=== PATIENT | male | born 1940 | race Caucasian/White ===

== ENCOUNTER 2021-05-16 17:46 | Inpatient (IN) | payer MEDICARE, OTHER, SELFPAY ==
[2021-05-16] VITALS (15 sets, daily range): BP systolic 78–186; BP diastolic 53–141; PULSE 58–127; RESP 12–20; TEMP 36.2–36.8; O2SAT 94–100; BMI 34.2; BMI 34.7
--- NOTE | 2021-05-16 18:03 | EKG12_ITS ---
Test Reason : DIZZY Blood Pressure : / mmHG Vent. Rate : 115 BPM Atrial Rate : 288 BPM P-R Int : 000 ms QRS Dur : 142 ms QT Int : 354 ms P-R-T Axes : 000 115 -17 degrees QTc Int : 489 ms Atrial flutter with variable A-V block Right bundle branch block Left posterior fascicular block Bifascicular block T wave abnormality, consider inferior ischemia Abnormal ECG Confirmed by LAKESHA REBOLLAR, STEFANIE ([id number]), subeditor KARLENE SAINI ([id number]) on 05/18/2021 11:00:43 AM Referred By: BRIGID Confirmed By:STEFANIE CROWDER MD
--- NOTE | 2021-05-16 18:05 | EX.ED.DYSGE1 ---
HPI History of Present Illness Chief Complaint: Dizziness Informant: patient Onset/Context/Timing Onset: Today Context: Gradual Onset Timing: Intermittent Current Severity: Gone Maximum Severity: Mild Narrative Narrative: 80-year-old male past medical history of enlarged prostate. No cardiac history. No history of stroke or mini stroke. No history of hypertension. Today the patient's had fluctuating blood pressure mainly around the 110. But at times has been high. Other times been low. He is also had a heart rate of around 1 20-1 30 at home. He has no history of cardiac disease or dysrhythmia. He said it felt lightheaded when he had the dizziness. He denied any numbness or weakness to his upper or lower extremities. No visual change or speech change. He has had no headache. No abdominal pain. No nausea, vomiting or diarrhea. No melena. No chest pain or hemoptysis. Has had no fever recently. States he has actually been feeling quite well. Prior similar symptoms: No Recent Illness/Hospitalization: No PFSH PFSH Allergy/AdvReac Type Severity Reaction Status Date / Time No Known Allergies Allergy Verified 05/16/21 17:52 Social History Smoking Status: Never smoker ROS ROS ED ROS Narrative Denies recent illness. Review of Systems ROS Unobtainable: Denies due to encephalopathy Constitutional Constitutional ED: Denies chills or fever(s) Eyes Eyes: Denies change in vision ENT ENT ED: Denies ear pain, rhinorrhea or sore throat Cardiovascular Cardiovascular: Reports racing heartbeat; Denies chest pain Respiratory/Chest Respiratory/Chest: Denies cough or dyspnea Gastrointestinal Gastrointestinal: Denies abdominal pain, diarrhea, nausea or vomiting Genitourinary Genitourinary ED: Denies dysuria or hematuria Musculoskeletal Musculoskeletal: Denies myalgias Integumentary Denies rash Neurologic Neurologic: Denies headache(s) Psychiatric Psychiatric: Denies depression Endocrine Endocrinology: Denies polyuria Allergic/Immunologic Allergic/Immunologic ED: Denies urticaria EXAM Physical Exam Narrative Exam Narrative: 80-year-old male no acute distress triage blood pressure is 181/141. That may be a an error. When I am in the room is 110/60. H EENT exam unremarkable. No facial droop. Tongue midline. Normal speech. Neck nontender. No JVD. No lymphadenopathy. Lungs clear to auscultation bilaterally. Heart tachycardic rate about 130 no murmur. Abdomen soft nontender normal bowel sounds no peritoneal signs. Patient moving all 4 extremities. Calves are nontender. He does have trace edema bilaterally. Neurologically is awake and alert with no focal motor deficits. 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 Dorsi plantarflexion intact. Fingertip to nose within normal limits. No facial droop and normal speech. Const Vital Signs: 05/16/21 17:49 05/16/21 18:12 Temperature 97.2 F L Temperature Source Temporal Pulse Rate 101 H 108 H Respiratory Rate 12 18 Respiratory Pattern Normal Blood Pressure 181/141 H 102/76 Blood Pressure Mean 154 84 Pulse Ox 94 99 Oxygen Delivery Method Room Air Room Air Positive well nourished and well developed; Negative for obese, cachectic, contractures or unkempt General Appearance ED: well developed and NAD; Negative for unkempt, cachectic, contractures, cyanotic, diaphoretic or pallor Nutritional Appearance: Negative for cachectic or obese HEENT Reports moist mucous membranes Negative for trauma or tenderness Eyes PERRL and EOMs intact bilaterally Neck no lymphadenopathy, supple and no JVD General: Negative for tenderness Chest Wall inspection of chest normal and palpation of chest normal Resp normal respiratory effort and clear to auscultation bilaterally Auscultation: Negative for rales, rhonchi or wheezes Cardio Rate: tachycardic GI normal to inspection, nondistended, normoactive bowel sounds, non-tender, non-distended and no masses Inspection: Negative for abdominal distention Auscultation: normoactive bowel sounds Palpation: soft; Negative for tender, guarding or rebound tenderness present Back/Spine no CVA tenderness Extremity normal to inspection Extremity Narrative: Trace edema bilaterally. General Extremety ED: Yes edema; Negative for tenderness General Extremity: edema Neuro oriented x3 Sensorium / Orientation: alert; Negative for orientation impaired, lethargic or stuporous Motor Exam: strength 5/5 throughout Psych mental status grossly normal Appearance: Negative for unkempt Mood & Affect: Negative for depressed or tearful Skin no rashes or lesions noted and no wounds General Skin Exam: Negative for jaundice or pallor MDM MDM MDM Narrative Medical decision making narrative: Patient with lightheadedness and tachycardia. His EKG appears to be atrial flutter with variable block. Patient undergo a cardiac evaluation. Repeat exam at 6:58 PM patient doing well. He is in a flutter rate about 130. Current blood pressure is 105/70. Will be started on a Cardizem drip. Have the hospitalist on page. I spoke to the patient and his son at bedside and are comfortable with him being admitted. Lab Data Attestation: I reviewed the patient's lab results. Lab results narrative: CBC shows a white count 8.6 hemoglobin 12.9. Normal platelet count. Electrolytes show an anion gap of 5 BUN 21 creatinine of 1. Troponin 24 TSH normal at 1.85. Labs: Laboratory Results - last 24 hr 05/16/21 05/16/21 18:10 18:10 WBC 8.6 RBC 4.76 Hgb 12.9 L Hct 41.5 MCV 87.2 MCH 27.1 MCHC 31.1 L RDW Std Deviation 47.8 H RDW Coeff of Alona 14.9 H Plt Count 222 MPV 9.5 Immature Gran % (Auto) 0.200 Neut % (Auto) 53.4 Lymph % (Auto) 29.5 [place] % (Auto) 12.0 H Eos % (Auto) 4.1 Baso % (Auto) 0.8 Absolute Neuts (auto) 4.6 Absolute Lymphs (auto) 2.53 Nucleated RBC % 0 Sodium 139 Potassium 3.8 Chloride 110 H Carbon Dioxide 24.0 Anion Gap 5 BUN 21 H Creatinine 1.08 Estim Creat Clear Calc 57.13 Est GFR (MDRD) Af Amer 84 Est GFR (MDRD) Non-Af 70 BUN/Creatinine Ratio 19.4 Glucose 112 H Calcium 8.8 Troponin I High Sens 24 TSH 1.85 Radiography Chest X-Ray - ED: 1 View, Read by ED Physician, Heart, Lungs, Mediastinum, Bony Structures, No Acute Disease and Chronic Changes Diagnostic Testing: Clinical Impression(s) from Imaging Studies Chest X-Ray 05/16/21 18:25 IMPRESSION: No acute cardiopulmonary process. Electronically Signed: Eric Farfan MD (Brooks) at 18:45 EST , Service support , Rhythm Strip Rhythm Strip: A-fib Rate: 115 Ectopy: None EKG Initial EKG: Attestation: I personally reviewed and interpreted this EKG as follows: Interpretation: No Acute Injury Pattern and Atrial Flutter Comments: Atrial flutter rate of 115 with a right bundle branch block and left posterior fascicular block. He has a history of bundle branch block. Ends of PR nor ischemia. Prior EKG tracings: not available for review Discharge Plan Dx/Rx/DC Orders Clinical Impression: New onset atrial flutter Disposition Disposition: Acute Care Hospital [facility]
[2021-05-16 18:21] LABS: Absolute Lymphocyte Count 2.53 X10^3/uL (0.83-4.51); Absolute Neutrophil Count 4.6 X10^3/uL (2.0-7.7); Basophil# 0.07 X10^3/uL; Basophil% 0.8 % (0-1); Eosinophil# 0.35 X10^3/uL; Eosinophils% 4.1 % (0-5); Hematocrit 41.5 % (40-54); Hemoglobin 12.9 g/dL (13.0-16.5); Lymphocyte # 2.53 X10^3/ul (0.83-4.51); Lymphocyte % 29.5 % (19-41); Mean Corp Hgb Conc 31.1 g/dL (32-36); Mean Corpuscular Hgb 27.1 pg (27.0-32.0); Mean Corpuscular Volume 87.2 fL (80-94); Mean Platelet Vol. 9.5 fl (6.2-12.0); Monocyte# 1.03 X10^3/uL; NRBC Flagged by Analyzer 0 % (0-5); Neutrophil # 4.58 X10^3/uL (2.7-7.7); Neutrophil % 53.4 % (47-70); Platelet Count 222 K/mm3 (150-450); RBC Distribution Width CV 14.9 % (11.6-14.6); RBC Distribution Width SD 47.8 fl (35.1-43.9); Red Blood Count 4.76 M/mm3 (4.6-6.2); White Blood Count 8.6 K/mm3 (4.4-11.0)
--- NOTE | 2021-05-16 18:25 | RAD_ITS ---
STUDY: X-RAY CHEST REASON FOR EXAM: Male, 80 years old. chest pain TECHNIQUE: AP COMPARISON: None. FINDINGS: EKG leads project over the chest. The lungs are clear and expanded. There is no demonstrated pleural abnormality. Normal size heart. Normal mediastinum and franklin. Normal visualized pulmonary arteries. There is atherosclerotic calcification of the aortic arch with tortuosity. Normal visualized thoracic spine. Normal visualized ribs, clavicles, and shoulders. Hiatal hernia. RAD/Chest 1 View (Portable) IMPRESSION: No acute cardiopulmonary process. Electronically Signed: Eric Farfan MD (Brooks) at 18:45 EST , Service support ,
[2021-05-16 18:48] LABS: Anion Gap 5 (5-15); BUN 21 mg/dL (7-18); BUN/Creat Ratio 19.4 RATIO (10-20); Calcium,Total 8.8 mg/dL (8.5-10.1); Chloride 110 mmol/L (98-107); Creatinine, Serum 1.08 mg/dL (0.70-1.30); EST Glomerular Filtration Rate 70 mL/min (>60); Est Glom Filt Rate - Afr Amer 84 mL/min (>60); Estimated Creatinine Clearance 57.13 ml/min; Glucose 112 mg/dL (74-106); Potassium 3.8 mmol/L (3.5-5.1); Sodium Level 139 mmol/L (136-145); Thyroid Stim Hormone (TSH) 1.85 uIU/mL (0.358-3.74); Troponin-I HS 24 pg/mL (3.0-78.0)
--- NOTE | 2021-05-16 19:14 | HP.PCM.HOS_ITS ---
HPI - General General Date of Admission: 05/16/21 Date of Service: 05/16/21 HPI Narrative DAVIS WALKER, is a 80 M with a significant history of BPH and who is hard of hearing presenting to the emergency department with a persistent lightheadedness that started on the same day of presentation. Following his lightheadedness he checked his blood pressure at home and it was erratic. He went to a nearby fire station where they his blood pressure was checked and an EKG was done. He was advised to come to the emergency department. At the emergency department it was found that patient was in a flutter with erratic rates. [facility] Medical History (Updated 05/16/21 @ 19:[address] Ovidio Park MD) BPH (benign prostatic hyperplasia) Home Medications cyanocobalamin (vitamin B-12) [Vitamin B-12] 2,000 mcg PO DAILY 05/16/21 [History Last Taken Unknown] doxazosin 4 mg PO QHS 05/16/21 [History Last Taken Unknown] finasteride 5 mg OTHER DAILY 05/16/21 [History Last Taken Unknown] pyridoxine (vitamin B6) [Vitamin B-6] 250 mg PO DAILY 05/16/21 [History Last Taken Unknown] vit A-vit C-vit [id number] [Eye Vitamin and Minerals] tab PO DAILY 05/16/21 [History Last Taken Unknown] Allergy/AdvReac Type Severity Reaction Status Date / Time No Known Allergies Allergy Verified 05/16/21 17:52 Family History Other Dementia Surgical History (Updated 05/16/21 @ 19:[address] Ovidio Park MD) History of hip surgery Social History Smoking Status: Never smoker ROS ROS Narrative Constitutional: Denies fever, chills, fatigue, anorexia and change in weight Eyes: Denies blurry vision, change in eye color, change in vision, discharge from eye(s), double vision, erythema, eye pain, loss of vision or other HEENT: Denies abnormal hearing, dysphagia, ear pain, epistaxis, headache(s), hearing loss, nasal congestion, nasal discharge, post nasal drip, sinus pressure, sore throat or other Cardiovascular: Denies chest pain or palpitations. Denies dyspnea on exertion, orthopnea and paroxysmal nocturnal dyspnea Respiratory/Chest: Denies cough, excessive phlegm production, shortness of breath with exertion and wheezing Gastrointestinal: Denies abdominal pain, coffee ground emesis, constipation, diarrhea, dyspepsia, hematemesis, hematochezia, loose stools, melena, nausea, vomiting or other Genitourinary: Denies burning urination, difficulty urinating, dysuria, hem aturia, nocturia, urinary frequency, urinary hesitancy, urinary incontinence, urinary urgency or other Musculoskeletal: Denies arthralgias, back pain, joint pain, joint stiffness, joint swelling, myalgias, neck pain or other Neurologic: Denies abnormal gait, abnormal speech, confusion, disequilibrium, , focal weakness, headache(s),seizure-like activity, seizures, syncope, tremor(s) or other. Reports numbness and tingling in feet (chronic) Psychiatric: Denies anxiety, depression, homicidal ideation, suicidal ideation or other Endocrinology: Denies change in body appearance, cold intolerance, excessive sweating, heat intolerance, polydipsia, polyuria or other Hematologic/Lymphatic: Denies anemia, easy bleeding, easy bruising, lymphadenopathy or other Integumentary: Denies rashes Allergic/Immunologic: Denies rhinitis, hives, eczema, asthma or other Vital Signs Vital Signs Vital Signs: 05/16/21 17:49 05/16/21 18:12 Temperature 97.2 F L Temperature Source Temporal Pulse Rate 101 H 108 H Respiratory Rate 12 18 Respiratory Pattern Normal Blood Pressure 181/141 H 102/76 Blood Pressure Mean 154 84 Pulse Ox 94 99 Oxygen Delivery Method Room Air Room Air Weight Weight: 111.584 kg Body Mass Index (BMI) 34.2 Physical Exam Narrative Physical exam: General: Well-nourished, well-developed. Head: Normocephalic, atraumatic, no tenderness Eyes: PERRLA, EOMI ENT, no trauma, moist mucous membranes, no rhinorrhea Neck: Nontender, full range of motion, no spinal tenderness, deformities, step- off CVS: Tachycardia, irregularly irregular. No murmur, gallop or rub. Respiratory : clear to auscultation bilaterally, chest wall nontender, no wheezing Abdomen: Soft, nontender, nondistended, normal bowel sounds, no masses : Deferred Back: Nontender, no CVA tenderness, no midline spinal tenderness, deformities, step-offs Extremities: Nontender full range of motion, no trauma Skin: Normal color, no trauma, abrasions Neuro: Alert, oriented, cranial nerves II through XII grossly intact. Psychiatry: Normal mood. Normal affect. Not depressed. Not anxious. Results Lab / Micro Data Result Diagrams: 05/16/21 18:10 05/16/21 18:10 Labs: Laboratory Results - last 24 hr 05/16/21 18:10: WBC 8.6, RBC 4.76, Hgb 12.9 L, Hct 41.5, MCV 87.2, MCH 27.1, MCHC 31.1 L, RDW Std Deviation 47.8 H, RDW Coeff of [place]ona 14.9 H, Plt Count 222, MPV 9.5, Immature Gran % (Auto) 0.200, Neut % (Auto) 53.4, Lymph % (Auto) 29.5, [place] % (Auto) 12.0 H, Eos % (Auto) 4.1, Baso % (Auto) 0.8, Absolute Neuts (auto) 4.6, Absolute Lymphs (auto) 2.53, Nucleated RBC % 0 05/16/21 18:10: Sodium 139, Potassium 3.8, Chloride 110 H, Carbon Dioxide 24.0, Anion Gap 5, BUN 21 H, Creatinine 1.08, Estim Creat Clear Calc 57.13, Est GFR (MDRD) Af Amer 84, Est GFR (MDRD) Non-Af 70, BUN/Creatinine Ratio 19.4, Glucose 112 H, Calcium 8.8, Troponin I High Sens 24, TSH 1.85 Rhythm Strip Rhythm Strip: A-fib Rate: 115 Ectopy: None Radiology Impression Chest X-Ray 05/16/21 18:25 IMPRESSION: No acute cardiopulmonary process. Electronically Signed: Eric Farfan MD (Brooks) at 18:45 EST , Service support , Assessment & Plan Assessment/Plan (1) Atrial flutter with rapid ventricular response: PLAN: Newly diagnosed A flutter with rapid ventricular response Patient with a flutter and ventricular response from high 80s to 130. Chest x-ray independently interpreted showed no acute cardiopulmonary process. I agree with radiologist interpretation. EKG showed a flutter with ventricular rate of 115. Place on PCU on telemetry Obtain echo Initial cardiac enzyme review was negative. Lovenox 1 mg per kilogram subcutaneous every 12 hours Started on Cardizem drip at emergency department and continued. If patient blood pressure unable to tolerate Cardizem will consider digoxin. Potassium is 3.8. Supplemental potassium given. Check magnesium. TSH is normal. History of BPH Finasteride and prazosin continued. DVT prophylaxis: Not indicated since patient has not started on Lovenox for atrial flutter. Charges/Coding Visit Charges Inpatient E&M: 66916 Init Hosp L3
--- NOTE | 2021-05-16 19:51 | ECHOD_ITS ---
Reason For Study: AFIB/FLUTTER Procedure This was a 2D Doppler, Color Flow transthoracic echocardiogram. Exam performed portable in patient room. Left Ventricle Normal LV size. Left ventricular systolic function is normal. The estimated ejection fraction is 55 %. Stage 2 diastolic dysfunction. No regional wall motion abnormalities noted. Right Ventricle Normal RV size. Normal systolic function. Atria The left atrium is moderately enlarged. The right atrium is mildly enlarged. Mitral Valve Normal mitral valve. Tricuspid Valve Normal tricuspid valve. Mild tricuspid valve insufficiency. Aortic Valve Normal aortic valve. Trisinus/trileaflet aortic valve. Pulmonic Valve Normal pulmonic valve. Great Vessels Normal aortic root. The pulmonary artery is normal size. Normal inferior vena cava. Pericardium/Pleural No pericardial effusion. MMode/2D Measurements & Calculations LVIDd: 4.2 cm IVSd: 0.86 cm Ao root diam: 3.2 cm LVIDs: 3.2 cm LVPWd: 0.88 cm RVDd: 4.5 cm FS: 25.5 % LAV(MOD-bp): 75.3 ml LVAd ap4: 29.0 cm2 LVAd ap2: 28.8 cm2 LAV(MOD-bp) Indexed: 32.6 ml/m2 LVLd ap4: 8.8 cm LVLd ap2: 8.2 cm LAV(MOD-sp2): 81.5 ml EDV(MOD-sp4): 81.6 ml EDV(MOD-sp2): 90.6 ml LAV(MOD-sp4): 67.7 ml EDV(sp4-el): 81.3 ml EDV(sp2-el): 85.7 ml LVAs ap4: 16.4 cm2 LVAs ap2: 17.1 cm2 LVLs ap4: 6.8 cm LVLs ap2: 6.5 cm ESV(MOD-sp4): 34.1 ml ESV(MOD-sp2): 40.8 ml ESV(sp4-el): 33.3 ml ESV(sp2-el): 38.0 ml EF(MOD-sp4): 58.2 % EF(MOD-sp2): 55.0 % EF(sp4-el): 59.0 % SV(MOD-sp4): 47.5 ml SV(MOD-sp2): 49.8 ml SV(sp4-el): 48.0 ml LA dimension(2D): 4.7 cm LA A4 area: 23.2 cm2 RA A4 area: 28.9 cm2 Doppler Measurements & Calculations MV E max markell: 99.7 cm/sec Lat Peak E' Markell: 10.1 cm/sec Med Peak E' Markell: 11.9 cm/sec MV A max markell: 61.3 cm/sec E/E' lat: 9.8 E/E' med: 8.4 MV E/A: 1.6 Ao V2 max: 123.3 cm/sec LV V1 max: 88.9 cm/sec PA V2 max: 94.2 cm/sec Ao max P.1 mmHg LV V1 max P.2 mmHg TR max markell: 222.2 cm/sec TR max P.8 mmHg ECHO/Echo Complete Interpretation Summary Normal LV size. Left ventricular systolic function is normal. The estimated ejection fraction is 55 %. Stage 2 diastolic dysfunction. Mild tricuspid valve insufficiency. Ordering Physician: Ovidio Park Referring Physician: DR ERROL TAY Performed By: Destinee Honeycutt, NICK, RVT
[2021-05-16 19:58] LABS: Magnesium 2.2 mg/dL (1.6-2.6)
--- NOTE | 2021-05-16 20:17 | PCS.PANDOC ---
PANDEMIC DOCUMENTATION INITIATED: Date: 02/16/2021 Time: 190
[2021-05-16] MEDS: Potassium Chloride Oral Tablet 20 MEQ PO (20:59)
[2021-05-16] MEDS: Doxazosin 4 MG Tablet PO (22:37)
[2021-05-16] MEDS: Finasteride 5 MG Tablet PO (22:37)
[2021-05-16] MEDS: 3 110 MG SC (22:38)
[2021-05-17] VITALS (16 sets, daily range): BP systolic 85–110; BP diastolic 47–72; PULSE 60–134; RESP 13–22; TEMP 36.7–37.2; O2SAT 95–100
[2021-05-17 06:20] LABS: Absolute Lymphocyte Count 2.46 X10^3/uL (0.83-4.51); Absolute Neutrophil Count 3.8 X10^3/uL (2.0-7.7); Basophil# 0.05 X10^3/uL; Basophil% 0.7 % (0-1); Eosinophil# 0.33 X10^3/uL; Eosinophils% 4.4 % (0-5); Hematocrit 39.2 % (40-54); Hemoglobin 12.7 g/dL (13.0-16.5); Lymphocyte # 2.46 X10^3/ul (0.83-4.51); Lymphocyte % 32.6 % (19-41); Mean Corp Hgb Conc 32.4 g/dL (32-36); Mean Corpuscular Hgb 28.3 pg (27.0-32.0); Mean Corpuscular Volume 87.3 fL (80-94); Mean Platelet Vol. 9.9 fl (6.2-12.0); Monocyte# 0.92 X10^3/uL; Monocyte% 12.2 % (0-10); NRBC Flagged by Analyzer 0 % (0-5); Neutrophil # 3.77 X10^3/uL (2.7-7.7); Neutrophil % 49.8 % (47-70); Platelet Count 212 K/mm3 (150-450); RBC Distribution Width CV 15.1 % (11.6-14.6); RBC Distribution Width SD 48.3 fl (35.1-43.9); Red Blood Count 4.49 M/mm3 (4.6-6.2); White Blood Count 7.6 K/mm3 (4.4-11.0)
[2021-05-17 06:46] LABS: Anion Gap 4 (5-15); BUN 19 mg/dL (7-18); BUN/Creat Ratio 18.6 RATIO (10-20); Calcium,Total 8.6 mg/dL (8.5-10.1); Chloride 109 mmol/L (98-107); Creatinine, Serum 1.02 mg/dL (0.70-1.30); EST Glomerular Filtration Rate 74 mL/min (>60); Est Glom Filt Rate - Afr Amer 90 mL/min (>60); Estimated Creatinine Clearance 60.49 ml/min; Glucose 97 mg/dL (74-106); Potassium 4.1 mmol/L (3.5-5.1); Sodium Level 138 mmol/L (136-145)
[2021-05-17] MEDS: Pyridoxine HCl 100 MG Tablet 250 MG PO (08:01)
[2021-05-17] MEDS: Multivitamins,Ther W-Minerals Tablet 1 TABLET PO (08:01)
[2021-05-17] MEDS: 3 110 MG SC (08:02)
[2021-05-17] MEDS: Cyanocobalamin 500 MCG Tablet 2000 MCG PO (08:02)
[2021-05-17] MEDS: Ferrous Sulfate 325 MG Tablet PO (08:02)
[2021-05-17] MEDS: Metoprolol Tartrate 25 MG Tablet PO ×2 (09:50→21:40)
[2021-05-17 09:53] LABS: Troponin-I HS 29 pg/mL (3.0-78.0)
--- NOTE | 2021-05-17 10:16 | EKG12_ITS ---
Test Reason : ARRYTHMIA Blood Pressure : / mmHG Vent. Rate : 085 BPM Atrial Rate : 267 BPM P-R Int : 000 ms QRS Dur : 142 ms QT Int : 414 ms P-R-T Axes : 093 103 000 degrees QTc Int : 492 ms Suspect arm lead reversal, interpretation assumes no reversal Atrial flutter with variable A-V block Right bundle branch block Abnormal ECG When compared with ECG of 16-MAY-2021 18:04, MANUAL COMPARISON REQUIRED, DATA IS UNCONFIRMED Confirmed by LAKESHA REBOLLAR, STEFANIE ([id number]), editorial manager KARLENE SAINI ([id number]) on 05/19/2021 11:26:35 AM Referred By: HOSP Confirmed By:STEFANIE CROWDER MD
--- NOTE | 2021-05-17 15:30 | PCM.PN.HOSP ---
Subjective Subjective Patient states he is feeling okay. He had been having some increased fatigue over the last several weeks and possibly longer he stated and that is why finally decided to present as his fatigue was intolerable. He was started on Cardizem last evening but this was discontinued due to hypotension and nothing else was restarted so he is now back into tachycardia with heart rates in the 120s to 130s. He states he is lost 40 pounds and is feeling much better. He regrets not doing this earlier but states that overall his health has been really good. He is anxious to figure out what he can do to make himself feel better and get home soon as possible. Objective Data Objective Data Vital Signs: Vital Signs Temp Pulse Resp BP Pulse Ox 98.9 F 64 16 92/63 97 05/17/21 12:00 05/17/21 12:00 05/17/21 12:00 05/17/21 12:00 05/17/21 12:00 Oxygen Delivery Method Room Air Weight: 112.8 kg Body Mass Index (BMI) 34.7 Intake & Output: Intake and Output for Last 24 Hours 05/15/21 05/16/21 05/17/21 23:59 23:59 23:59 Intake Total 44.33 / 54.33 720.67 / 720.67 Output Total 1025 / 1025 Balance 44.33 / 54.33 -304.33 / -304.33 Lab / Micro Data Result Diagrams: 05/17/21 05:43 05/17/21 05:43 Labs: Laboratory Results - last 24 hr 05/16/21 18:10: WBC 8.6, RBC 4.76, Hgb 12.9 L, Hct 41.5, MCV 87.2, MCH 27.1, MCHC 31.1 L, RDW Std Deviation 47.8 H, RDW Coeff of [place] 14.9 H, Plt Count 222, MPV 9.5, Immature Gran % (Auto) 0.200, Neut % (Auto) 53.4, Lymph % (Auto) 29.5, [place] % (Auto) 12.0 H, Eos % (Auto) 4.1, Baso % (Auto) 0.8, Absolute Neuts (auto) 4.6, Absolute Lymphs (auto) 2.53, Nucleated RBC % 0 05/16/21 18:10: Sodium 139, Potassium 3.8, Chloride 110 H, Carbon Dioxide 24.0, Anion Gap 5, BUN 21 H, Creatinine 1.08, Estim Creat Clear Calc 57.13, Est GFR (MDRD) Af Amer 84, Est GFR (MDRD) Non-Af 70, BUN/Creatinine Ratio 19.4, Glucose 112 H, Calcium 8.8, Troponin I High Sens 24, TSH 1.85 05/16/21 18:10: Magnesium 2.2 05/17/21 05:43: WBC 7.6, RBC 4.49 L, Hgb 12.7 L, Hct 39.2 L, MCV 87.3, MCH 28.3, MCHC 32.4, RDW Std Deviation 48.3 H, RDW Coeff of [place] 15.1 H, Plt Count 212, MPV 9.9, Immature Gran % (Auto) 0.300, Neut % (Auto) 49.8, Lymph % (Auto) 32.6, [place] % (Auto) 12.2 H, Eos % (Auto) 4.4, Baso % (Auto) 0.7, Absolute Neuts (auto) 3.8, Absolute Lymphs (auto) 2.46, Nucleated RBC % 0 05/17/21 05:43: Sodium 138, Potassium 4.1, Chloride 109 H, Carbon Dioxide 25.0, Anion Gap 4 L, BUN 19 H, Creatinine 1.02, Estim Creat Clear Calc 60.49, Est GFR (MDRD) Af Amer 90, Est GFR (MDRD) Non-Af 74, BUN/Creatinine Ratio 18.6, Glucose 97, Calcium 8.6 05/17/21 09:30: Troponin I High Sens 29 Radiography Diagnostic Testing: Radiology Impression Chest X-Ray 05/16/21 18:25 IMPRESSION: No acute cardiopulmonary process. Electronically Signed: Eric Farfan MD (Brooks) at 18:45 EST , Service support , Rhythm Strip Rhythm Strip: A-fib Rate: 115 Ectopy: None Physical Exam Const alert, oriented x3, no apparent distress, healthy appearing and well nourished Constitutional Narrative: Obese elderly white male lying in bed, appears comfortable, appears younger than stated age, very interactive and very friendly. Nontoxic Exam Limitations: no limitations Nutritional Appearance: obese HEENT head/scalp atraumatic, moist oral mucous membranes and oropharynx normal Head and Scalp: normocephalic Resp normal respiratory effort, no retractions, no use of accessory muscles and clear to auscultation bilaterally Auscultation: Negative for crackles, rales, rhonchi or wheezes Cardio S1 normal heart sound, S2 normal heart sound, no murmurs, no rub, no gallops, no clicks and no JVD Cardio Narrative: Regular rhythm with frequent ectopy, telemetry appears to be flutter with variable block, tachycardic GI normal to inspection, nondistended, normoactive bowel sounds, soft to palpation, non-tender and non-distended Extremity no clubbing, cyanosis or edema Peripheral Pulses: Yes pulses 2+ throughout Neuro oriented x3, CN's II-XII intact bilaterally, moves all extremities and no focal motor deficits Sensorium / Orientation: awake and alert Speech: speech normal Psych affect normal Assessment & Plan Assessment/Plan (1) Atrial flutter with rapid ventricular response: PLAN: New onset atrial flutter with variable block -Was placed on Cardizem drip on admission but developed hypotension and Cardizem was discontinued -We will start metoprolol 25 mg twice daily -As this is flutter his rate may be more difficult to control -Continue to monitor on telemetry -Troponins are normal -TSH within normal limits -Echo pending -We will start Eliquis 5 mg twice daily -ChadsVAS score is 2 which gives him a 2.9% risk of stroke/TIA/systemic embolism yearly -Discontinue Lovenox -If heart rate is not controlled with beta-jolanta may need to consult cardiology Chronic Anemia -on Fe at home -counts are stable BPH -continue Proscar and Doxazosin DVT prophylaxis -full dose Eliquis Code Status -Full Charges/Coding Visit Charges Inpatient E&M: 14402 Subs Hosp L2
[2021-05-17] MEDS: APIXABAN 5 MG TABLET PO (21:40)
[2021-05-17] MEDS: Doxazosin 4 MG Tablet PO (21:40)
[2021-05-17] MEDS: Finasteride 5 MG Tablet PO (21:40)
[2021-05-18] VITALS (8 sets, daily range): BP systolic 91–113; BP diastolic 65–71; PULSE 58–92; RESP 14–17; TEMP 36.2–36.8; O2SAT 96–97
[2021-05-18] MEDS: Pyridoxine HCl 100 MG Tablet 250 MG PO (08:55)
[2021-05-18] MEDS: Cyanocobalamin 500 MCG Tablet 2000 MCG PO (08:55)
[2021-05-18] MEDS: Multivitamins,Ther W-Minerals Tablet 1 TABLET PO (08:56)
[2021-05-18] MEDS: Ferrous Sulfate 325 MG Tablet PO ×2 (08:56)
[2021-05-18] MEDS: Metoprolol Tartrate 25 MG Tablet PO (08:56)
[2021-05-18] MEDS: APIXABAN 5 MG TABLET PO (08:57)
--- NOTE | 2021-05-18 10:25 | CASEMGMT ---
PEÑA HERRMANN assessment: Face to Face with patient for initial transition planning/care coordination assessment. PEÑA HERRMANN introduced self and role at [facility], pt voices understanding and consents to assessment. Pt is sitting up in bed in no distress on room air. Pt is A/Ox4 and answers all questions appropriately. Care providers, pharmacy, and demographics verified. Presentation: Pt c/o dizziness this am and went to fire dept where EKG was performed and told to come to ED Admitting dx: Aflutter, new onset PCP: Wilbur Specialists: None Preferred Pharmacy: [facility] to follow for Eliquis coverage/co-pay Insurance: MCR A/B, AARP Prescription Benefit: MCR D Living Will/HPOA: Pt has LW/HPOA and is aware that they are not on file at [facility]. Pt's , Lynnette Ramirez, is HPOA. LNOK: Lnynette Ramirez, ; Hilario Ramirez, son Living Arrangements: Pt lives with apt above a garage with stairlift and states no concerns at home. Pt is independent with ADL's. Transportation: Pt states drives self and states no transportation concerns. DME/HHC: Pt has the following DME: cane, walker, and shower chair. Pt states no need for any further DME. Pt states has had HHC in the past but has not been to SNF. Pt states no concerns with going home at time of discharge. Pt is retired. Pt states does not smoke cigarettes or drink ETOH. Pt voices no further concerns/needs. CM to follow for any further discharge planning/needs. Advised pt to ask for CM if any further questions/concerns/need arise, voices understanding. Pt Goal: [place] PE[place]A HERRMANN
--- NOTE | 2021-05-18 11:58 | NURSING ---
Pt ambulated in hallway SBA per request of Dr Frankel. Pt denied dizziness. Dr Frankel notified.
--- NOTE | 2021-05-18 14:56 | PCM.DC ---
Discharge Instructions Diet Discharge Diet: No restrictions Activity Discharge Activity: Return to Normal Activity Weight Bearing Status: Full weight bearing Follow Up Care Test Results: Test results from this visit will be discussed in further detail at your follow-up appointment, if applicable. Discharge Plan Admission Admit Date/Time: 05/16/21 19:06 Primary Reason for Your Visit: new onset a-fib Attending Provider: Khadar Frankel Primary Care Provider: Bar Bowles Discharge Orders/Prescriptions Prescriptions: New metoprolol tartrate 25 mg Tablet 25 mg PO BID Qty: 60 RF: 0 Xarelto 20 mg tablet 20 mg PO DAILY Qty: 30 RF: 0 Continued doxazosin 4 mg Tablet 4 mg PO QHS RF: 0 cyanocobalamin (vitamin B-12) [Vitamin B-12] 2,000 mcg Tablet Extended Release 2,000 mcg PO DAILY RF: 0 pyridoxine (vitamin B6) [Vitamin B-6] 250 mg Tablet 250 mg PO DAILY RF: 0 vit A-vit C-vit F-zllg-ydnsmj 7,160-113-100 vuqq-tb-mxjv Tablet 1 tab PO DAILY RF: 0 finasteride 5 mg 5 mg PO/SL QHS RF: 0 ferrous sulfate 325 mg (65 mg iron) Capsule, Extended Release 325 mg PO DAILY RF: 0 Referrals / Follow Up: Bar Bowles MD [Primary Care Provider] - Within 1 Week Disposition Disposition (needs filled in before D/C Order can be placed): Home, Self Care
--- NOTE | 2021-05-18 15:10 | NURSING ---
This RN reviewed SN charting
--- NOTE | 2021-05-18 15:44 | CASEMGMT ---
Addendum entered by Rubia Carreno 05/18/21 15:57: Eliquis was not on pt formulary so changed to Xarelto. Robbie POMPA CM Original Note: Pt to be sent home on Xarelto at discharge and Dr. Frankel called the order into [facility] and states co-pay is only around $40. Pt updated and provided a Xarelto 30 day free coupon card. Pt states no further questions/concerns/needs. Robbie POMPA CM
--- NOTE | 2021-05-18 16:17 | PHA.DC.MC ---
Pharmacy Service has performed discharge medication reconciliation and counseling for this patient. 1. METOPROLOL TARTRATE 25MG PO BID 2. RIVAROXABAN 20MG PO DINNER The patient's discharge medication list was reviewed for discrepancies and discrepancies were resolved. Home Medications cyanocobalamin (vitamin B-12) [Vitamin B-12] 2,000 mcg PO DAILY 05/16/21 doxazosin 4 mg PO QHS 05/16/21 ferrous sulfate 325 mg PO DAILY 05/16/21 finasteride 5 mg PO/SL QHS 05/16/21 pyridoxine (vitamin B6) [Vitamin B-6] 250 mg PO DAILY 05/16/21 vit A-vit C-vit M-zfku-hadtvh 1 tab PO DAILY 05/16/21 metoprolol tartrate 25 mg PO BID #60 tab 05/18/21 rivaroxaban [Xarelto] 20 mg PO DAILY #30 tab 05/18/21 The patient was counseled on the following discharge medications and changes in medications for homegoing were reviewed. The Reason for Use, instructions for use, and potential side effects were reviewed for all new medications. The patient's questions regarding all of their medications were answered. The patient was able to verbally demonstrate an understanding of their discharge medications.
--- NOTE | 2021-05-18 16:45 | DS.PCM_ITS ---
Providers Date of Admission: 05/16/21 Date of Discharge: 05/18/21 Primary Care Physician: Dr. Bar Bowles MD Reason For Visit: NEWLY DIAGNOSED A FLUTTER Diagnosis Discharge Diagnosis (1) Atrial flutter with rapid ventricular response: Status: Acute Code(s): I48.92 - Unspecified atrial flutter Plan: 1. Atrial flutter with rapid ventricular response #2 chronic iron deficiency anemia #3 BPH Medications at Discharge Home Medications cyanocobalamin (vitamin B-12) [Vitamin B-12] 2,000 mcg PO DAILY 05/16/21 doxazosin 4 mg PO QHS 05/16/21 ferrous sulfate 325 mg PO DAILY 05/16/21 finasteride 5 mg PO/SL QHS 05/16/21 pyridoxine (vitamin B6) [Vitamin B-6] 250 mg PO DAILY 05/16/21 vit A-vit C-vit T-wesk-kegmdr 1 tab PO DAILY 05/16/21 metoprolol tartrate 25 mg PO BID #60 tab 05/18/21 rivaroxaban [Xarelto] 20 mg PO DAILY #30 tab 05/18/21 Hospital Course Operations None Procedures 2-D Echocardiogram Summary of Care Provided Minutes Spent on Discharge: 31 Hospital Course: This 80-year-old white male was seen in the emergency room at [facility]. Patient also noted that he had a heart rate of around 1 20-1 30 at home, patient denied any history of previous cardiac problems, work-up in the emergency room included an EKG which showed atrial flutter with variable block at approximately 130, patient was started on a Cardizem drip and he was admitted to PCU. Echocardiogram was obtained and he was noted to have a normal ejection fraction, patient's heart rate came under control with rate limiting medications. Patient was placed on anticoagulation, at the time of his discharge, his anticoagulant was changed from Eliquis to Xarelto due to insurance coverage. Patient was discharged on metoprolol for rate control. I contacted his PCP at the patient's time of discharge and advised him of the patient's hospital course, patient talk to me before his discharge and stated that he had plan to go to [place] within a week and he would attempt to see his physician in a few days after his discharge. On 05/18/2021, patient was seen and examined: On examination he appeared in good health and spirits. Vital signs as documented. Skin warm and dry and without overt rashes. Neck without JVD, neck was supple, trachea midline, thyroid was normal. Lungs clear bilaterally, normal air movement was noted. Heart exam notable for regular irrhythm, normal sounds and absence of murmurs, rubs or gallops. Abdomen unremarkable and without evidence of organomegaly, masses, or abdominal aortic enlargement. Bowel sounds are present, abdomen is not distended. Extremities nonedematous, no cyanosis was noted, no clubbing was no vladimir. Neuro: Cranial nerves II through XII are grossly intact, no focal motor deficits were noted, sensation to light touch and pinprick intact, motor exam 5/5 throughout. Psych: Patient is alert and oriented x3, he does not appear anxious or depressed, he does not appear agitated. On 05/18/2021, patient was discharged home in stable condition. Weight / BMI Weight Weight: 112.8 kg Body Mass Index (BMI) 34.7 ABG / Lab / Microbiology Data Result Diagrams: 05/17/21 05:43 05/17/21 05:43 Radiography Diagnostic Testing: Radiology Impression Echocardiogram 05/16/21 19:51 Interpretation Summary Normal LV size. Left ventricular systolic function is normal. The estimated ejection fraction is 55 %. Stage 2 diastolic dysfunction. Mild tricuspid valve insufficiency. Ordering Physician: Ovidio Park Referring Physician: DR BAR BOWLES Performed By: Destinee Honeycutt, NICK, RVT D/C Instructions Discharge Diet: No restrictions Weight Bearing Status: Full weight bearing Meaningful Use Info Meaningful Use Diagnoses (Choose all that apply): None applicable Discharge Plan Admission Admit Date/Time: 05/16/21 19:06 Primary Reason for Your Visit: new onset a-fib Attending Provider: Khadar Frankel Primary Care Provider: Bar Bowles Discharge Orders/Prescriptions Prescriptions: New metoprolol tartrate 25 mg Tablet 25 mg PO BID Qty: 60 RF: 0 Xarelto 20 mg tablet 20 mg PO DAILY Qty: 30 RF: 0 Continued doxazosin 4 mg Tablet 4 mg PO QHS RF: 0 cyanocobalamin (vitamin B-12) [Vitamin B-12] 2,000 mcg Tablet Extended Release 2,000 mcg PO DAILY RF: 0 pyridoxine (vitamin B6) [Vitamin B-6] 250 mg Tablet 250 mg PO DAILY RF: 0 vit A-vit C-vit Y-pyew-ktdyfx 7,160-113-100 cpgr-wq-gvyd Tablet 1 tab PO DAILY RF: 0 finasteride 5 mg 5 mg PO/SL QHS RF: 0 ferrous sulfate 325 mg (65 mg iron) Capsule, Extended Release 325 mg PO DAILY RF: 0 Referrals / Follow Up: Bar Bowles MD [Primary Care Provider] - Within 1 Week Disposition Disposition (needs filled in before D/C Order can be placed): Home, Self Care Charges/Coding Visit Charges Inpatient E&M: 11198 Disch Hosp
== END 2021-05-18 16:59 | disposition home or self-care (01) | DRG 310 ==
LOC: ED 18:35 → PCU 19:28
PROVIDERS: Internal Medicine; Admitting Provider Hospitalist; Emergency Provider Emergency Medicine; PCP Family Medicine; Visit Provider Internal Medicine
DX: I48.92 Unspecified atrial flutter (principal); N40.0 Benign prostatic hyperplasia without lower urinary tract symptoms; I45.10 Unspecified right bundle-branch block; I44.5 Left posterior fascicular block; I95.9 Hypotension, unspecified; E66.9 Obesity, unspecified; Z68.34 Body mass index [BMI] 34.0-34.9, adult; D50.9 Iron deficiency anemia, unspecified; Z79.899 Other long term (current) drug therapy
CPT/HCPCS: 36415; 71045; 80048; 83735; 84443; 84484; 85025; 93005; 93306; 99285; A4216

== ENCOUNTER 2021-09-07 12:17 | Inpatient (IN) | payer MEDICARE, OTHER, SELFPAY ==
[2021-09-07] VITALS (11 sets, daily range): BP systolic 89–121; BP diastolic 50–71; PULSE 59–88; RESP 14–19; TEMP 35.9–37.3; O2SAT 99–100; BMI 35.8; BMI 36.4
--- NOTE | 2021-09-07 12:51 | EDS_ITS ---
HPI History of Present Illness Chief Complaint: Abn Labs Narrative Narrative: Patient presents with generalized weakness, some exertional dyspnea over the past few weeks, he was found to have low hemoglobin on a routine outpatient lab. He has no chest pain. He has no shortness of breath at rest. He has normal stools, he in fact he has had history anemia and he recently had a colonoscopy and endoscopy which did not show the source of bleeding. He has no nausea or vomiting. [facility] Medical History (Updated 09/07/21 @ 13:[address] Kp Lawton MD) Atrial fibrillation BPH (benign prostatic hyperplasia) Non-smoker Normocytic anemia Home Medications cyanocobalamin (vitamin B-12) [Vitamin B-12] 2,000 mcg PO DAILY 05/16/21 [History Last Taken 05/16/21 08:00] doxazosin 4 mg PO QHS 05/16/21 [History Last Taken 05/15/21] ferrous sulfate 325 mg PO DAILY 05/16/21 [History Last Taken 05/16/21 08:00] finasteride 5 mg PO/SL QHS 05/16/21 [History Last Taken 05/15/21] pyridoxine (vitamin B6) [Vitamin B-6] 250 mg PO DAILY 05/16/21 [History Last Taken 05/16/21 08:00] vit A-vit C-vit Y-zmcl-ntsqzg 1 tab PO DAILY 05/16/21 [History Last Taken 05/16/21 08:00] metoprolol tartrate 25 mg PO BID #60 tab 05/18/21 [Rx Last Taken Unknown] rivaroxaban [Xarelto] 20 mg PO DAILY #30 tab 05/18/21 [Rx Last Taken Unknown] Allergy/AdvReac Type Severity Reaction Status Date / Time No Known Allergies Allergy Verified 09/07/21 12:20 Family History Other Dementia Surgical History (Updated 05/16/21 @ 19:[address] Ovidio Park MD) History of hip surgery Social History Smoking Status: Never smoker ROS ROS ED ROS Narrative Past medical history: Reviewed Medications: Reviewed Social history: Noncontributory Review of systems: All systems negative except as indicated General: No fever, some generalized weakness. Eyes: No visual changes ENT: No upper airway congestion, normal voice Neck: No neck pain Cardiovascular: No chest pain Respiratory: Some exertional dyspnea Gastrointestinal: No abdominal pain, nausea vomiting or diarrhea Genitourinary: No dysuria Musculoskeletal: Denies myalgias no difficulty with ambulation Skin: No rash Neurological: No memory loss, confusion or any focal weakness Psych: No recent behavioral changes Hematologic: No easy bleeding or easy bruising EXAM Physical Exam Narrative Exam Narrative: Physical exam General: Well nourished, Well developed, No Acute Distress Head: Normocephalic, Atraumatic Eyes: Conjunctiva slightly pale ENT: Moist mucous membranes Neck: Supple, Nontender, No lymphadenopathy Cardiovascular: Regular rate, Regular rhythm Respiratory: No distress, CTA bilaterally Abdomen: Soft, Nontender, Nondistended Back: Nontender, Normal Inspection. Negative for: CVA tenderness Extremities: Nontender, No edema Skin: Some pallor Neurological: Alert, Normal Strength, Normal Sensation Psychological: Normal affect Const Vital Signs: 09/07/21 12:18 09/07/21 12:37 09/07/21 12:38 Temperature 96.7 F L Temperature Source Temporal Pulse Rate 59 L 70 Respiratory Rate 16 14 Respiratory Effort Normal Respiratory Pattern Normal Blood Pressure 115/56 L 89/50 L Blood Pressure Mean 75 63 Pulse Ox 99 100 Oxygen Delivery Method Room Air Room Air MDM MDM MDM Narrative Medical decision making narrative: Patient is found to be anemic with a hemoglobin of 6.6. I will transfuse and admit for further work-up. Lab Data Labs: Laboratory Results - last 24 hr 09/07/21 09/07/21 09/07/21 12:50 12:50 12:50 WBC 6.9 RBC 3.05 L Hgb 6.6 L Hct 23.5 L MCV 77.0 L MCH 21.6 L MCHC 28.1 L RDW Std Deviation 50.1 H RDW Coeff of [place] 17.8 H Plt Count 294 MPV 9.7 Immature Gran % (Auto) 0.400 Neut % (Auto) 53.0 Lymph % (Auto) 33.0 [place] % (Auto) 10.0 Eos % (Auto) 3.2 Baso % (Auto) 0.4 Absolute Neuts (auto) 3.7 Absolute Lymphs (auto) 2.28 Nucleated RBC % 0 PT 26.2 H INR 2.5 Sodium 142 Potassium 4.2 Chloride 113 H Carbon Dioxide 25.0 Anion Gap 4 L BUN 18 Creatinine 1.03 Estim Creat Clear Calc 55.29 Est GFR (MDRD) Af Amer 89 Est GFR (MDRD) Non-Af 74 BUN/Creatinine Ratio 17.5 Glucose 104 Calcium 8.3 L Total Bilirubin 0.20 AST 14 L ALT 9 L Alkaline Phosphatase 75 Total Protein 5.9 L Albumin 2.4 L Globulin 3.5 Albumin/Globulin Ratio 0.7 L Discharge Plan Triage Chief Complaint: Abn Labs ED Provider: Kp Lawton Dx/Rx/DC Orders Clinical Impression: Anemia Prescriptions: No Action doxazosin 4 mg Tablet 4 mg PO QHS RF: 0 cyanocobalamin (vitamin B-12) [Vitamin B-12] 2,000 mcg Tablet Extended Release 2,000 mcg PO DAILY RF: 0 pyridoxine (vitamin B6) [Vitamin B-6] 250 mg Tablet 250 mg PO DAILY RF: 0 vit A-vit C-vit T-cuhd-uvwpcw 7,160-113-100 eujc-pc-heod Tablet 1 tab PO DAILY RF: 0 finasteride 5 mg 5 mg PO/SL QHS RF: 0 ferrous sulfate 325 mg (65 mg iron) Capsule, Extended Release 325 mg PO DAILY RF: 0 metoprolol tartrate 25 mg Tablet 25 mg PO BID Qty: 60 RF: 0 Xarelto 20 mg tablet 20 mg PO DAILY Qty: 30 RF: 0 Primary Care Provider: Bar Bowles Referrals: Bar Bowles MD [Primary Care Provider] - Disposition Disposition: Acute Care Hospital [facility]
[2021-09-07 13:06] LABS: Absolute Lymphocyte Count 2.28 X10^3/uL (0.83-4.51); Absolute Neutrophil Count 3.7 X10^3/uL (2.0-7.7); Basophil# 0.03 X10^3/uL; Basophil% 0.4 % (0-1); Eosinophil# 0.22 X10^3/uL; Eosinophils% 3.2 % (0-5); Hematocrit 23.5 % (40-54); Hemoglobin 6.6 g/dL (13.0-16.5); Lymphocyte # 2.28 X10^3/ul (0.83-4.51); Mean Corp Hgb Conc 28.1 g/dL (32-36); Mean Corpuscular Hgb 21.6 pg (27.0-32.0); Mean Platelet Vol. 9.7 fl (6.2-12.0); Monocyte# 0.69 X10^3/uL; NRBC Flagged by Analyzer 0 % (0-5); Neutrophil # 3.65 X10^3/uL (2.7-7.7); Platelet Count 294 K/mm3 (150-450); RBC Distribution Width CV 17.8 % (11.6-14.6); RBC Distribution Width SD 50.1 fl (35.1-43.9); Red Blood Count 3.05 M/mm3 (4.6-6.2); White Blood Count 6.9 K/mm3 (4.4-11.0)
[2021-09-07 13:15] LABS: International Normalized Ratio 2.5; Prothrombin Time (Protime)PT. 26.2 SECONDS (11.7-14.9)
[2021-09-07 13:22] LABS: ALB/GLOB Ratio 0.7 RATIO (0.9-2.4); AST(SGOT) 14 U/L (15-37); Alanine Aminotransfer ALT/SGPT 9 U/L (16-61); Albumin, Serum 2.4 g/dL (3.2-5.0); Alkaline Phosphatase 75 U/L (45-117); Anion Gap 4 (5-15); BUN 18 mg/dL (7-18); BUN/Creat Ratio 17.5 RATIO (10-20); Calcium,Total 8.3 mg/dL (8.5-10.1); Chloride 113 mmol/L (98-107); Creatinine, Serum 1.03 mg/dL (0.70-1.30); EST Glomerular Filtration Rate 74 mL/min (>60); Est Glom Filt Rate - Afr Amer 89 mL/min (>60); Estimated Creatinine Clearance 55.29 ml/min; Globulin 3.5 g/dL (2.2-4.2); Glucose 104 mg/dL (74-106); Potassium 4.2 mmol/L (3.5-5.1); Protein, Total 5.9 g/dL (6.4-8.2); Sodium Level 142 mmol/L (136-145)
--- NOTE | 2021-09-07 14:00 | PCM.HP.STD ---
HPI - General General Date of Admission: 09/07/21 HPI Narrative DAVIS WALKER, is a 81 M with a PMH as outlined who was admitted via the ED on 09/07/2021 with a complaint of shortness of breath and generalised weakness for a few weeks. HE was recently started on xarelto late last year for new onset atrial fibrillation. His hemoglobin in May 2021 was ~ 12. He has progressively been getting anemic on outpatient basis, with his Hb dropping to 9, then 8, per ED physician. he says he had been due to have some polyps removed in [place] recently. His symptoms gradually worsened so he came in to the ED where he was found to have Hb of 6. He says he recently had an EGD and colonoscopy at [facility] in July 2021 and was found to have a descending colon and cecal mass as well as some colonic polyps. 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 He was referred to [facility] and says he was seen there for pre op evaluation last Tuesday and was called today that his Hb from pre op testing was low. He therefore came in to the ED. He has been on his xarelto all this while. He admits to intentional weight loss of ~ 30 pounds over the last year. He denied having any dark stools, any nausea or vomiting or dark coffee ground emesis. Vitals in the ED were BP o 89/50, WI of 70, RR of 14 and he was saturating at 100% on room air. CBC showed Hb of 6.6, wbc of 6.9, platelets of 294 and. INR was 2.5. BMP showed sodium of 142 and K of 4.2 as well as CR of 1.03. He is being admitted to be managed for acute on chronic anemia. [facility] Medical History (Updated 09/07/21 @ 15:40 by Rubia Nunes) Atrial fibrillation BPH (benign prostatic hyperplasia) GERD (gastroesophageal reflux disease) Hearing loss, left Hearing loss, right Non-smoker Normocytic anemia Wears hearing aid in both ears Home Medications doxazosin 4 mg PO QHS 05/16/21 [History Last Taken 09/06/21] rivaroxaban [Xarelto] 20 mg PO DAILY #30 tab 05/18/21 [Rx Last Taken 09/07/21] ferrous sulfate [FeroSul] 65 mg PO DAILY 09/07/21 [History Last Taken 09/07/21] finasteride 5 mg PO QHS 09/07/21 [History Last Taken 09/06/21] metoprolol tartrate 12.5 mg PO BID 09/07/21 [History Last Taken 09/07/21] omeprazole 20 mg PO DAILY 09/07/21 [History Last Taken 09/07/21] Allergy/AdvReac Type Severity Reaction Status Date / Time No Known Allergies Allergy Verified 09/07/21 12:20 Family History Other Dementia Surgical History (Updated 05/16/21 @ 19:[address] Ovidio Park MD) History of hip surgery Social History Smoking Status: Never smoker ROS Constitutional Constitutional: Reports change in weight; Denies anorexia, chills, fatigue, fever(s), malaise or weakness Eyes Eyes: Denies change in vision ENT HEENT: Denies dysphagia, headache(s), nasal congestion, nasal discharge or sore throat Cardiovascular Cardiovascular: Denies chest pain, dyspnea on exertion, edema, lightheadedness, orthopnea, palpitations or paroxysmal nocturnal dyspnea Respiratory/Chest Respiratory/Chest: Denies cough, dyspnea, shortness of breath at rest or shortness of breath with exertion Gastrointestinal Gastrointestinal: Denies abdominal pain, coffee ground emesis, constipation, diarrhea, dyspepsia, hematemesis, hematochezia, melena, nausea or vomiting Genitourinary Genitourinary: Denies burning urination or dysuria Musculoskeletal Musculoskeletal: Denies back pain, joint stiffness or joint swelling Neurologic Neurologic: Denies confusion, dizziness, focal weakness, headache(s), numbness, seizure-like activity, seizures or syncope Psychiatric Psychiatric: Denies anxiety or depression Endocrine Endocrinology: Denies change in body appearance Hematologic/Lymphatic Hematologic/Lymphatic: Reports anemia; Denies easy bleeding or easy bruising Allergic/Immunologic Allergic/Immunologic: Denies asthma Vital Signs Vital Signs Vital Signs: 09/07/21 12:18 09/07/21 12:37 09/07/21 12:38 Temperature 96.7 F L Temperature Source Temporal Pulse Rate 59 L 70 Respiratory Rate 16 14 Respiratory Effort Normal Respiratory Pattern Normal Blood Pressure 115/56 L 89/50 L Blood Pressure Mean 75 63 Pulse Ox 99 100 Oxygen Delivery Method Room Air Room Air Weight Weight: 242 lb 8.136 oz Body Mass Index (BMI) 35.8 Physical Exam Const alert, oriented x3 and no apparent distress General Appearance: cooperative HEENT normocephalic, head/scalp atraumatic and hearing grossly normal bilaterally Eyes PERRL, EOMs intact bilaterally and conjunctivae normal Neck no lymphadenopathy Resp normal respiratory effort, no retractions, no use of accessory muscles and clear to auscultation bilaterally Cardio regular rate, regular rhythm, S1 normal heart sound, S2 normal heart sound and no murmurs GI normal to inspection, nondistended, normoactive bowel sounds, soft to palpation, non-tender and non-distended Extremity normal to inspection, full ROM and no clubbing, cyanosis or edema Peripheral Pulses: Yes pulses 2+ throughout Skin no rashes or lesions noted Neuro oriented x3, CN's II-XII intact bilaterally and moves all extremities Sensorium / Orientation: awake and alert Psych affect normal Results Lab / Micro Data Result Diagrams: 09/07/21 12:50 09/07/21 12:50 Labs: Laboratory Results - last 24 hr 09/07/21 12:50: WBC 6.9, RBC 3.05 L, Hgb 6.6 L, Hct 23.5 L, MCV 77.0 L, MCH 21.6 L, MCHC 28.1 L, RDW Std Deviation 50.1 H, RDW Coeff of [place] 17.8 H, Plt Count 294, MPV 9.7, Immature Gran % (Auto) 0.400, Neut % (Auto) 53.0, Lymph % (Auto) 33.0, [place] % (Auto) 10.0, Eos % (Auto) 3.2, Baso % (Auto) 0.4, Absolute Neuts (auto) 3.7, Absolute Lymphs (auto) 2.28, Nucleated RBC % 0 09/07/21 12:50: PT 26.2 H, INR 2.5 09/07/21 12:50: Sodium 142, Potassium 4.2, Chloride 113 H, Carbon Dioxide 25.0, Anion Gap 4 L, BUN 18, Creatinine 1.03, Estim Creat Clear Calc 55.29, Est GFR (MDRD) Af Amer 89, Est GFR (MDRD) Non-Af 74, BUN/Creatinine Ratio 17.5, Glucose 104, Calcium 8.3 L, Total Bilirubin 0.20, AST 14 L, ALT 9 L, Alkaline Phosphatase 75, Total Protein 5.9 L, Albumin 2.4 L, Globulin 3.5, Albumin/Globulin Ratio 0.7 L Assessment & Plan Assessment/Plan (1) Anemia: PLAN: Insert code#Acute on chronic anemia admit to PCU Hb is 6.6; says Hb has dropped steadily from 12 to 8.5 to 7.1 and now 6.6 says he recently had EGD and colonoscopy in July 2021 which showed polyps and descending colon and cecal mass. being worked up at [facility] for this, and has an appointment to see his surgeon Dr Khadar Kincaid on Tuesday09/08/2021 at 9:30am in [place] hold xarelto transfuse with 2 units of PRBCs since patient has a descending colon and cecal mass, this is likely the source of worsening anemia. IV pantoprazole 40mg bid. I counseled patient and his daughter in law who was accompanying him that we would have to stop his xarelto for now due to the worsening anemia, and counseled him about his increased risk of stroke whilst off the xarelto. He was in agreement with stopping xarelto for now. Patient expressed his desire to be discharged to follow up at [facility] tomorrow, as he has an appointment with a research consultant for pre op clearance for his surgery, then has an appointment with his surgeon Dr Khadar Kincaid on Tuesday09/09/2021 to schedule his surgery. I did reach out to his surgeon Dr Kincaid via the [facility] transfer line; surgeon does not think there is an immediate need to transfer and is okay with patient being seen and transfused and follow-up with him as scheduled on September 09 in [place] #Atrial fibrillation: hold xarelto. continue metoprolol #GERD: on PPI #BPH: on flomax DVT prophylaxis: SCD Code status: full code Patient counseled extensively about different types of CODE STATUS including full code, DNR CCA and DNR CCA. Patient elects to be full code. Total mzqh-zt-xjos time 16 minutes. Charges/Coding Visit Charges OBSV E&M: 18945 Initial observation care L2 Procedures Hospitalists Procedures: [id number] Advncd Care Plan 30 Min
--- NOTE | 2021-09-07 16:08 | NURSING ---
[facility] agent called because she had not been able to reach Dr Jaramillo to inform her that colorectal surgeon Dr Kincaid is comfortable with blood transfusion and discharge in order to make appointment with him afternoon. Additionally, patient has appointment tomorrow at 3pm for cardiology clearance so patient will need an early discharge.
[2021-09-07] MEDS: 0.9% Normal Saline 1,000 ML 100 ML IV (18:30)
[2021-09-07] MEDS: Finasteride 5 MG Tablet PO (20:34)
[2021-09-07] MEDS: Metoprolol Tartrate 25 MG Tablet 12.5 MG PO (20:35)
[2021-09-07 21:02] LABS: Magnesium 2.1 mg/dL (1.6-2.6)
[2021-09-08] VITALS (10 sets, daily range): BP systolic 98–122; BP diastolic 64–73; PULSE 62–79; RESP 16–18; TEMP 36.5–36.7; O2SAT 99–100
[2021-09-08] MEDS: 0.9% Normal Saline 1,000 ML 100 ML IV (03:50)
[2021-09-08 06:46] LABS: Basophil# 0.04 X10^3/uL; Basophil% 0.7 % (0-1); Eosinophil# 0.24 X10^3/uL; Hematocrit 24.7 % (40-54); Lymphocyte % 33.3 % (19-41); Mean Corp Hgb Conc 28.3 g/dL (32-36); Mean Corpuscular Hgb 21.8 pg (27.0-32.0); Mean Corpuscular Volume 76.9 fL (80-94); Mean Platelet Vol. 9.9 fl (6.2-12.0); Monocyte# 0.68 X10^3/uL; Monocyte% 11.3 % (0-10); NRBC Flagged by Analyzer 0 % (0-5); Neutrophil # 3.03 X10^3/uL (2.7-7.7); Neutrophil % 50.4 % (47-70); Platelet Count 288 K/mm3 (150-450); RBC Distribution Width CV 17.9 % (11.6-14.6); RBC Distribution Width SD 49.7 fl (35.1-43.9); Red Blood Count 3.21 M/mm3 (4.6-6.2)
[2021-09-08 06:53] LABS: International Normalized Ratio 1.6; Prothrombin Time (Protime)PT. 18.1 SECONDS (11.7-14.9)
[2021-09-08 07:15] LABS: Anion Gap 3 (5-15); BUN 16 mg/dL (7-18); BUN/Creat Ratio 20.4 RATIO (10-20); Calcium,Total 7.9 mg/dL (8.5-10.1); Chloride 112 mmol/L (98-107); Creatinine, Serum 0.78 mg/dL (0.70-1.30); EST Glomerular Filtration Rate 101 mL/min (>60); Est Glom Filt Rate - Afr Amer 122 mL/min (>60); Estimated Creatinine Clearance 56.95 ml/min; Glucose 92 mg/dL (74-106); Potassium 4.3 mmol/L (3.5-5.1); Sodium Level 140 mmol/L (136-145)
[2021-09-08] MEDS: Metoprolol Tartrate 25 MG Tablet 12.5 MG PO (08:12)
--- NOTE | 2021-09-08 10:10 | CASEMGMT ---
PEÑA HERRMANN assessment: Face to Face with patient for initial transition planning/care coordination assessment. PEÑA HERRMANN introduced self and role at [facility], pt voices understanding and consents to assessment. Pt is sitting up in bed in no distress on room air. Pt is A/Ox4 and answers all questions appropriately. Pt is hard of hearing. Pt's is at bedside during assessment. Care providers, pharmacy, and demographics verified. Presentation: Pt had bloodwork done on tuesday, results showed HGB of 7-sent to ED Admitting dx: A on C anemia PCP: Bar Bowles Specialists: Sanjiv, GI surgeon at [facility]; [facility]erred [facility]acy: [facility] Insurance: [facility] A/B, AARP Prescription Benefit: Yes Living Will/HPOA: Pt states has LW/HPOA and is aware that they are not on file at [facility]. Pt states his , Lynnette Ramirez, is HPOA. LNOK: Lynnette Ramirez, ; Hilario Ramirez, son Living Arrangements: Pt/ currently live between two of their son's homes and states no concerns at homes. Pt is independent with ADL's. Transportation: Pt drives self and states no transportation concerns. DME/HHC: Pt has a BP cuff and states no need for any further DME. Pt states no hx of SNF but [facility]. Pt states no concerns with going home at time of discharge. Pt is retired. Pt does not smoke cigarettes or drink ETOH. Pt states no further concerns/needs other than getting discharged in time to get to cardiology clearance appt at [facility] by 3pm. Vanessa POMPA aware and pt getting another transfusion of PRBC's. CM to follow for any further discharge planning/needs. Advised pt to ask for CM if any further questions/concerns/needs arise, voices understanding. Pt Goal: Home Plan[place] PE[place] HERRMANN
[2021-09-08] MEDS: Ferrous Sulfate 325 MG Tablet PO (11:05)
--- NOTE | 2021-09-08 11:20 | DCINST_ITS ---
Discharge Instructions Diet Discharge Diet: No restrictions Activity Discharge Activity: Return to Normal Activity Weight Bearing Status: Weight bearing as tolerated Dressing / Incision Call your doctor if you observe: Fever of 101 or Higher, Numbness or Tingling, Shortness of breath, Dizziness, Chest pain, Increased palpitations (irregular heartbeat) and Calf discomfort Follow Up Care Please Follow Up With: Primary care provider When: Within the next two weeks. Test Results: Test results from this visit will be discussed in further detail at your follow-up appointment, if applicable. Discharge Plan Admission Admit Date/Time: 09/07/21 14:11 Primary Reason for Your Visit: Generalized weakness Attending Provider: Marky Hampton Primary Care Provider: Bar Bowles Instructions Additional Instructions / Restrictions: * Proceed to your scheduled appointment at [facility] in [place] after discharge from [facility]. * Hold on talking your home Xarelto until your are told to resume by your PCP. Discharge Orders/Prescriptions Prescriptions: Continued doxazosin 4 mg Tablet 4 mg PO QHS RF: 0 ferrous sulfate [FeroSul] 325 mg (65 mg iron) tablet 65 mg PO DAILY RF: 0 omeprazole 20 mg capsule,delayed release(DR/EC) 20 mg PO DAILY RF: 0 finasteride 5 mg tablet 5 mg PO QHS RF: 0 metoprolol tartrate 25 mg tablet 12.5 mg PO BID RF: 0 Held Xarelto 20 mg tablet 20 mg PO DAILY Qty: 30 RF: 0 Hold Instructions: Hold until instructed to resume by your PCP due to on going anemia. Referrals / Follow Up: Bar Bowles MD [Primary Care Provider] - Within 2 Weeks Disposition Disposition (needs filled in before D/C Order can be placed): Home, Self Care
--- NOTE | 2021-09-08 13:34 | PCM.DC.SUM ---
Documented by User: Joey MILLER 09/08/21 13:39 Providers Date of Admission: 09/07/21 Date of Discharge: 09/08/21 Primary Care Physician: Dr. Bar Bowles MD Reason For Visit: ACUTE ON CHRONIC ANEMIA Diagnosis Discharge Diagnosis (1) Anemia: Status: Acute Code(s): D64.9 - Anemia, unspecified Medications at Discharge Home Medications doxazosin 4 mg PO QHS 05/16/21 Xarelto 20 mg PO DAILY #30 tab 05/18/21 ferrous sulfate [FeroSul] 65 mg PO DAILY 09/07/21 finasteride 5 mg PO QHS 09/07/21 metoprolol tartrate 12.5 mg PO BID 09/07/21 omeprazole 20 mg PO DAILY 09/07/21 Hospital Course Summary of Care Provided Minutes Spent on Discharge: 20 Hospital Course: Patient is an 81-year-old male who was admitted to [facility] on 09/07/2021 for generalized weakness with anemia. Patient's anemia was 6.6 on admission. Patient's anemia is a chronic problem and he has been following with Dr. Khadar Kincaid at [facility] for EGD and colonoscopy scheduled on 09/08/2021. Dr. Kincaid was contacted about patient's anemia and felt that if patient was transfused and stable that he could be discharged and proceed to previously scheduled appointment. Patient was transfused 2 units of PRBCs, 1 unit on admission and 1 additional unit day after admission due to hemoglobin being 7. Patient's Xarelto held on discharge due to ongoing anemia and to be continued based off of outpatient providers discretion. Patient was advised about risks of holding Xarelto to include stroke and possible . Patient acknowledged risks and was comfortable with holding off on Xarelto. No further medication changes were made and patient was discharged to proceed to outpatient appointment at [facility] in [place]. Patient seen by Joey Hale PA-C, under the supervision of Dr. Hampton. Physical Exam Narrative Patient is an 81-year-old male currently resting in bed, alert and orient x3. Patient denies development of any new symptoms overnight. Does not appear in acute distress. Const alert, oriented x3 and no apparent distress HEENT normocephalic, head/scalp atraumatic and hearing grossly normal bilaterally Eyes PERRL and conjunctivae normal Neck no lymphadenopathy, supple and no JVD Resp normal respiratory effort, no retractions and no use of accessory muscles Cardio regular rate, regular rhythm and no JVD GI normal to inspection, nondistended, normoactive bowel sounds Extremity normal to inspection Skin no rashes or lesions noted Neuro CN's II-XII intact bilaterally Psych affect normal Weight / BMI Weight Weight: 246 lb 11.156 oz Body Mass Index (BMI) 36.4 ABG / Lab / Microbiology Data Result Diagrams: 09/08/21 06:08 09/08/21 06:08 Laboratory: Laboratory Results - last 24 hr 09/07/21 12:50: Blood Type A POSITIVE, Antibody Screen NEGATIVE 09/07/21 12:50: Crossmatch See Detail 09/07/21 12:50: Crossmatch See Detail 09/07/21 12:50: Crossmatch See Detail 09/07/21 20:30: Magnesium 2.1 09/08/21 06:08: WBC 6.0, RBC 3.21 L, Hgb 7.0 L, Hct 24.7 L, MCV 76.9 L, MCH 21.8 L, MCHC 28.3 L, RDW Std Deviation 49.7 H, RDW Coeff of [place] 17.9 H, Plt Count 288, MPV 9.9, Immature Gran % (Auto) 0.300, Neut % (Auto) 50.4, Lymph % (Auto) 33.3, [place] % (Auto) 11.3 H, Eos % (Auto) 4.0, Baso % (Auto) 0.7, Absolute Neuts (auto) 3.0, Absolute Lymphs (auto) 2.00, Nucleated RBC % 0 09/08/21 06:08: PT 18.1 H, INR 1.6 09/08/21 06:08: Sodium 140, Potassium 4.3, Chloride 112 H, Carbon Dioxide 25.0, Anion Gap 3 L, BUN 16, Creatinine 0.78, Estim Creat Clear Calc 56.95, Est GFR (MDRD) Af Amer 122, Est GFR (MDRD) Non-Af 101, BUN/Creatinine Ratio 20.4 H, Glucose 92, Calcium 7.9 L D/C Instructions Discharge Diet: No restrictions Weight Bearing Status: Weight bearing as tolerated Call your doctor if you observe: Fever of 101 or Higher, Numbness or Tingling, Shortness of breath, Dizziness, Chest pain, Increased palpitations (irregular heartbeat) and Calf discomfort Please Follow Up With: Primary care provider When: Within the next two weeks. Meaningful Use Info Meaningful Use Diagnoses (Choose all that apply): None applicable Discharge Plan Admission Admit Date/Time: 09/07/21 14:11 Primary Reason for Your Visit: Generalized weakness Attending Provider: Marky Hampton Primary Care Provider: Bar Bowles Instructions Additional Instructions / Restrictions: * Proceed to your scheduled appointment at [facility] in [place] after discharge from [facility]. * Hold on talking your home Xarelto until your are told to resume by your PCP. Discharge Orders/Prescriptions Prescriptions: Continued doxazosin 4 mg Tablet 4 mg PO QHS RF: 0 ferrous sulfate [FeroSul] 325 mg (65 mg iron) tablet 65 mg PO DAILY RF: 0 omeprazole 20 mg capsule,delayed release(DR/EC) 20 mg PO DAILY RF: 0 finasteride 5 mg tablet 5 mg PO QHS RF: 0 metoprolol tartrate 25 mg tablet 12.5 mg PO BID RF: 0 Held Xarelto 20 mg tablet 20 mg PO DAILY Qty: 30 RF: 0 Hold Instructions: Hold until instructed to resume by your PCP due to on going anemia. Referrals / Follow Up: Bar Bowles MD [Primary Care Provider] - Within 2 Weeks Disposition Disposition (needs filled in before D/C Order can be placed): Home, Self Care Documented by User: Dr. Marky Hampton MD 09/08/21 13:43 Providers Date of Admission: 09/07/21 Reason For Visit: ACUTE ON CHRONIC ANEMIA Medications at Discharge Home Medications doxazosin 4 mg PO QHS 05/16/21 Xarelto 20 mg PO DAILY #30 tab 05/18/21 ferrous sulfate [FeroSul] 65 mg PO DAILY 09/07/21 finasteride 5 mg PO QHS 09/07/21 metoprolol tartrate 12.5 mg PO BID 09/07/21 omeprazole 20 mg PO DAILY 09/07/21 Hospital Course Operations None Summary of Care Provided Minutes Spent on Discharge: 45 Hospital Course: This patient was seen in conjunction with Joey Hale PA-C. I have independently interviewed and examined the patient and reviewed pertinent historical, laboratory, and other data. Please refer to Joey Hale PA-C's note for details of this patient's presentation, findings, and recommendations. I have reviewed Joey Hale PA-C's note and concur with documented findings. 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 Patient was apparently found to be anemic. Admitted to a monitored bed where patient was transfused with 2 unit PRBC Physical Examination: GENERAL: cooperative HEENT: Atraumatic; EYES; Anicteric, Normal Conjunctiva NECK; supple, normal thyroid, RESPIRATORY: Diminished to auscultation CARDIOVASCULAR: Regular S1 S2, GI: soft, normoactive bowel sounds, : No Renal angle tenderness; EXTREMITIES: No edema, no clubbing, MUSCULOSKELETAL: no muscle wasting NEURO: Awake; no lateralizing signs. SKIN: No Rash PSYCH; Flat affect Hospital course; as documented above Total time spent by myself and the advanced practice practitioner evaluating patient, reviewing labs, subsequent management decisions, discussion with patient as well as other providers 45 minutes ( 25 of which was spent by myself) ABG / Lab / Microbiology Data Result Diagrams: 09/08/21 06:08 09/08/21 06:08 Discharge Plan Admission Admit Date/Time: 09/07/21 14:11 Primary Reason for Your Visit: Generalized weakness Attending Provider: Marky Hampton Primary Care Provider: Bar Bowles Instructions Additional Instructions / Restrictions: * Proceed to your scheduled appointment at [facility] in [place] after discharge from [facility]. * Hold on talking your home Xarelto until your are told to resume by your PCP. Discharge Orders/Prescriptions Prescriptions: Continued doxazosin 4 mg Tablet 4 mg PO QHS RF: 0 ferrous sulfate [FeroSul] 325 mg (65 mg iron) tablet 65 mg PO DAILY RF: 0 omeprazole 20 mg capsule,delayed release(DR/EC) 20 mg PO DAILY RF: 0 finasteride 5 mg tablet 5 mg PO QHS RF: 0 metoprolol tartrate 25 mg tablet 12.5 mg PO BID RF: 0 Held Xarelto 20 mg tablet 20 mg PO DAILY Qty: 30 RF: 0 Hold Instructions: Hold until instructed to resume by your PCP due to on going anemia. Referrals / Follow Up: Bar Bowles MD [Primary Care Provider] - Within 2 Weeks Disposition Disposition (needs filled in before D/C Order can be placed): Home, Self Care Charges/Coding Visit Charges OBSV E&M: 80945 Observation care discharge Hospital Course Operations None
== END 2021-09-08 13:05 | disposition home or self-care (01) | DRG 812 ==
LOC: ED 13:59 → PCU 14:22
PROVIDERS: Admitting Provider Student in an Organized Health Care Education/Training Program; Emergency Provider Emergency Medicine; PCP Family Medicine; Visit Provider Internal Medicine
DX: D64.9 Anemia, unspecified (principal); I48.91 Unspecified atrial fibrillation; K21.9 Gastro-esophageal reflux disease without esophagitis; N40.0 Benign prostatic hyperplasia without lower urinary tract symptoms; K63.5 Polyp of colon; K63.9 Disease of intestine, unspecified; Z79.899 Other long term (current) drug therapy; Z79.01 Long term (current) use of anticoagulants
CPT/HCPCS: 36415; 80048; 80053; 83735; 85025; 85610; 86850; 86900; 86901; 86920; 86922; 99284; J7030; J7040; P9016; A4216